=== PATIENT | female | born 1970 | race Hispanic/Latino ===

== ENCOUNTER 2016-11-19 09:37 | Day surgery (SDC) | payer OTHER ==
[~2016-11-19] VITALS: Ht 165.1 cm; Wt 83.0 kg
[~2016-11-19 09:37] MED LIST: DICY10CA56 PO; IBUP800T28 PO; OMEP20CA11 PO; Sodium Chloride LOK Flush 10 mL Syringe IV PRN; fentaNYL-PF 50 mCg/mL 2 mL Inj IVPUSH PRN
[2016-11-19 10:09] VITALS: BP 114/67; PULSE 80; RESP 16; O2SAT 97
[2016-11-19] MEDS ORDERED: fentaNYL-PF 50 mCg/mL 2 mL Inj ONE (10:15)
[2016-11-19] MEDS: 0.9% Sodium Chloride 1,000 ML IV SCH ×2 (10:30→10:40)
[2016-11-19 10:48] VITALS: BP 98/65; PULSE 68; RESP 15; O2SAT 94
[2016-11-19 10:57] VITALS: BP 99/66; PULSE 68; RESP 15; O2SAT 95
[2016-11-19 11:07] VITALS: BP 99/66; PULSE 62; RESP 15; O2SAT 97
--- NOTE | 2016-11-19 12:03 | ENDO ---
[address] [address] ENDOSCOPY PROCEDURE PATIENT: KEVAN BANUELOS : 1970 MR#: [id number] ADMIT: 11/19/2016 JOB ID: [id number] DATE OF SERVICE: 11/19/2016 TYPE OF OPERATION: Esophagogastroduodenoscopy with biopsy. PREOPERATIVE DIAGNOSIS: Left upper quadrant pain. POSTOPERATIVE DIAGNOSIS: Normal upper endoscopy, status post biopsy. ANESTHESIA: Fentanyl 75 mcg, Versed 4 mg IV administered. COMPLICATIONS: None. BLOOD LOSS: Minimal. DESCRIPTION OF PROCEDURE: After risks and benefits explained to the patient, informed consent was obtained. After anesthesia administered, an upper endoscope was then inserted in the mouth, intubating to the esophagus, stomach, second portion of duodenum. Mucosa carefully examined. After procedure was done, the scope withdrawn and procedure terminated. FINDINGS: Upon inspection of the esophagus, esophagus was normal without masses, ulcers, or lesions. Z-line located 40 cm from incisors. Upon entering the stomach, the stomach also was normal without masses, ulcers, or lesions. Retroflexion was normal. Duodenal bulb, first and second portions were normal. Biopsies taken from the antrum and body of the stomach. IMPRESSION: Normal upper endoscopy, status post biopsy. RECOMMENDATIONS: Await pathology results. Follow up in GI clinic as needed.
--- NOTE | 2016-11-21 10:56 | PATH ---
SURGICAL PATHOLOGY Attending Physician:Javed Franz MD CASE STATUS: Signed Out PATIENT NAME: KEVAN BANUELOS PID: [id number] : 1970 DATE COLLECTED:11/19/2016 15:46 SPECIMEN: 1: Gastric, Biopsy 2: Stomach, Antrum, Biopsy CLINICAL HISTORY: 1: GASTRIC BODY BIOPSY 2: ANTRUM BIOPSY FINAL DIAGNOSIS: 1. Gastric Body Biopsy: Gastric body mucosa with minimal chronic inflammation. Negative for Helicobacter organisms by immunohistochemical stains. Negative for intestinal metaplasia. Negative for dysplasia and malignancy. 2. Gastric Antrum Biopsy: Gastric antral mucosa with mild chronic inflammation. Negative for Helicobacter organisms by immunohistochemical stains. Negative for intestinal metaplasia. Negative for dysplasia and malignancy. ICD10 K29.70 GROSS DESCRIPTION: The specimen is received in two formalin filled containers labeled with the patient's name. 1). The specimen is sublabeled "gastric body" and consists of 2 portions of tissue which aggregate to 0.4 x 0.4 x 0.2 CM. The specimen is entirely submitted in cassette 1A. 2). The specimen is sublabeled "antral" and consists of 2 portions of tissue which aggregate to 0.2 x 0.2 x 0.2 CM. The specimen is entirely submitted in cassette 2A. 11/19/2016 DAC MICRO DESCRIPTION: 1. Sections are of gastric body mucosa with minimal chronic inflammation. No Helicobacter organisms are identified on H&E stains. Immunostains for Helicobacter pylori are performed using polyclonal antibody to Helicobacter pylori. The positive and negative controls stain appropriately. RESULTS: The patient tissue shows no staining. INTERPRETATION: The gastric body mucosa is negative for Helicobacter organisms by immunohistochemical stains. 2. Sections are of gastric antrum biopsy with mild chronic inflammation. No Helicobacter organisms are identified on H&E stains. Immunohistochemical stains using polyclonal antibody to Helicobacter pylori are performed to further evaluate for the presence of Helicobacter organisms. The positive and negative controls stain appropriately. RESULTS: The patient tissue shows no staining. INTERPRETATION: The gastric antral mucosa is negative for Helicobacter organisms by immunohistochemical stains. * This test was developed and its performance characteristics determined by [facility]. It has not been cleared or approved by the [place]. Food and Drug Administration. The FDA has determined that such clearance or approval is not necessary. This test is used for clinical purposes. It should not be regarded as investigational or for research. ICD-9 CODES: CPT CODES: 1: 24951, 08516 2: 03580, 20797 Electronically Signed Out Karley Leung MD [facility] [address], [place] [address] Technical component performed at [facility], [facility] [address], [place], [address]
== END 2016-11-19 23:59 | disposition home or self-care (01) ==
LOC: END 09:37
PROVIDERS: ATTEND Internal Medicine Gastroenterology
DX: K29.50 Unspecified chronic gastritis without bleeding (principal); R10.12 Left upper quadrant pain; Z79.899 Other long term (current) drug therapy
CPT/HCPCS: 43239; 88305; 88342; G0500; J2250; J7030